=== PATIENT | female | born 1965 | race Caucasian/White ===

== ENCOUNTER 2020-01-13 13:38 | Day surgery (SDC) | payer MEDICARE ==
[2020-01-13] MEDS ORDERED: Marcaine 0.5% SDV 10 ML IJ ONE (13:39)
[2020-01-13] MEDS ORDERED: Xylocaine 1% Vial 30 ML PF IJ ONE (13:39)
[2020-01-13] MEDS ORDERED: Depo-Medrol 40 MG/ML IM ONE (13:39)
--- NOTE | 2020-01-13 16:31 | XRAY ---
25 seconds fluoroscopy time in surgery for bilateral SI joint injections.
--- NOTE | 2020-01-16 20:39 | XRAY ---
Indication: Bilateral sacroiliac joint injections. Intraoperative fluoroscopy was provided for 25 seconds. 3 digital spot images submitted for interpretation demonstrate posterior needle tips in the projection of the inferior aspect of each sacroiliac joint. Evidence of prior lower lumbar spine surgery is partially seen. Correlate with intraoperative findings/report.
== END 2020-01-13 14:50 | disposition home or self-care (01) ==
LOC: SDC-PAIN 13:38
PROVIDERS: ATTEND Psychiatry & Neurology Pain Medicine
DX: M46.1 Sacroiliitis, not elsewhere classified (principal); E11.9 Type 2 diabetes mellitus without complications; I10 Essential (primary) hypertension; G47.419 Narcolepsy without cataplexy; F41.8 Other specified anxiety disorders; Z79.899 Other long term (current) drug therapy
CPT/HCPCS: 72202; 77002; 82962; G0260; 27096; J1030; J2001

== ENCOUNTER 2020-03-02 13:28 | Day surgery (SDC) | payer MEDICARE ==
[2020-03-02] MEDS ORDERED: Marcaine 0.5% SDV 10 ML IJ ONE (13:29)
[2020-03-02] MEDS ORDERED: Depo-Medrol 40 MG/ML IM ONE (13:29)
[2020-03-02] MEDS ORDERED: Xylocaine 1% Vial 30 ML PF IJ ONE (13:29)
--- NOTE | 2020-03-02 15:14 | XRAY ---
16 seconds fluoroscopy time in surgery for bilateral SI joint injections.
--- NOTE | 2020-03-02 15:15 | XRAY ---
Indication: Bilateral SI joint injection. Intraoperative fluoroscopy was provided for 16 seconds. 4 digital spot images submitted for interpretation demonstrates posterior needle tip projecting over the inferior left and right SI joint. Correlate with intraoperative findings/report.
== END 2020-03-02 15:06 | disposition home or self-care (01) ==
LOC: SDC-PAIN 13:28
PROVIDERS: ATTEND Psychiatry & Neurology Pain Medicine
DX: M46.1 Sacroiliitis, not elsewhere classified (principal); E11.9 Type 2 diabetes mellitus without complications; I10 Essential (primary) hypertension; G47.419 Narcolepsy without cataplexy; F41.8 Other specified anxiety disorders; E80.20 Unspecified porphyria; Z79.899 Other long term (current) drug therapy
CPT/HCPCS: 27096; 72202; 77002; 82962; J1030; J2001; G0260

== ENCOUNTER 2020-07-06 07:50 | Day surgery (SDC) | payer MEDICARE ==
[2020-07-06] MEDS ORDERED: Depo-Medrol 40 MG/ML IM ONE (07:51)
[2020-07-06] MEDS ORDERED: BUPIVACAINE 0.5% VIAL IJ ONE (07:51)
[2020-07-06] MEDS ORDERED: DIPRIVAN 200 MG/20 ML IV ONE (09:18)
[2020-07-06] MEDS ORDERED: Ketamine HCl 50 MG/ML ONE (09:18)
--- NOTE | 2020-07-06 11:09 | XRAY ---
Indication: Right knee injection. Intraoperative fluoroscopy was provided for 6 seconds. Single digital spot image submitted for interpretation demonstrates needle tip projecting over the right femur intercondylar notch. Small amount of contrast injected for needle tip placement. Correlate with intraoperative findings/report.
--- NOTE | 2020-07-06 11:09 | XRAY ---
Indication: Left knee injection. Intraoperative fluoroscopy was provided for 3 seconds. Single digital spot image submitted for interpretation demonstrates needle tip projecting over the left femur intercondylar notch. Small amount of contrast injected for needle tip placement. Correlate with intraoperative findings/report.
--- NOTE | 2020-07-06 11:12 | XRAY ---
3 seconds fluoroscopy time in surgery for left intra-articular knee injection.
--- NOTE | 2020-07-06 11:12 | XRAY ---
6 seconds fluoroscopy time in surgery for right intra-articular knee injection.
[2020-07-06] MEDS ORDERED: Lactated Ringers 1,000 ML IV ONE (15:13)
== END 2020-07-06 09:48 | disposition home or self-care (01) ==
LOC: SDC-PAIN 07:50
PROVIDERS: ATTEND Psychiatry & Neurology Pain Medicine
DX: M17.0 Bilateral primary osteoarthritis of knee (principal); E11.9 Type 2 diabetes mellitus without complications; I10 Essential (primary) hypertension; Z79.899 Other long term (current) drug therapy
CPT/HCPCS: 20610; 73560; 77002; 82947; 82962; J1030; J2704; Q9966